=== PATIENT | male | born 1935 | race Caucasian/White ===

== ENCOUNTER 2018-01-14 12:41 | Inpatient (IN) | payer MEDICARE, MEDICAID ==
[2018-01-14 12:44] VITALS: BP 135/68
[2018-01-14] MEDS ORDERED: Magnesium Hydroxide (MOM) 30 mL UDC PO PRN ×2 (13:32→13:39)
[2018-01-14] MEDS ORDERED: Maalox 30 mL Cup PO PRN ×2 (13:32→13:39)
--- NOTE | 2018-01-14 21:26 | History & Physical ---
ADMIT DATE: 01/14/2018 PATIENT IDENTIFICATION: An 82-year-old male. CHIEF COMPLAINT: "I am fine." HISTORY SOURCE: Reviewing the chart, talking to the patient. stapler hand used. HISTORY OF PRESENT ILLNESS: An 82-year-old [place] male initially presented to [facility] [place] for aggressive, agitated, and hypersexual. The patient was seen initially in the Emergency Room and subsequently transferred to [facility] for further care. PAST MEDICAL HISTORY: Remarkable for: 1. Parkinson's disease. 2. Hyperlipidemia. 3. BPH. 4. Dementia. 5. DJD. 6. GERD. MEDICATIONS AT HOME: Taking Depakote, amantadine, vitamin D3, omeprazole, Plavix, pravastatin, Flomax, Sinemet, trazodone, Namenda, and Aricept. ALLERGIES: The patient is not allergic to any medications. SOCIAL HISTORY: The patient resides with his in [place]. The patient has no smoking cigarette, alcohol, or drug use. FAMILY MEDICAL HISTORY: Remarkable for hypertension. REVIEW OF SYSTEMS: Unable to get meaningful history from the patient, but all history, which I asked which are unremarkable for any chest pain, shortness of breath, palpitation, dizziness, nausea, vomiting, diarrhea, dysuria, hematuria, hematochezia, melena. No seizure or syncopal episode. PHYSICAL EXAMINATION: GENERAL: Alert, awake, lying in the bed without any acute distress. VITAL SIGNS: Temperature 98, pulse is 64, respiratory rate 18, and blood pressure 134/80. HEENT: Normocephalic, atraumatic. Extraocular muscles intact. Tongue was pink and coated. Poor dentition noted. No oral lesion, no exudate. No sinus tenderness. External auditory canal and tympanic membranes are well visualized. NECK: Supple, no JVD. No hepatojugular reflex. No lymphadenopathy, thyromegaly, or carotid bruit. HEART: Both heart sounds are regular. Grade 2/6 systolic murmur noted. CHEST AND LUNGS: Equal in expansion, no wheezing, no crackles. ABDOMEN: Soft. No guarding, no rigidity. Liver and spleen palpable. No palpable mass. EXTREMITIES: No edema, no cyanosis. Peripheral pulses +1. No calf tenderness noted. NEUROLOGIC: Awake, alert, and follows commands. No facial asymmetry. Some degree of spasticity noted, but no tremor noted. AVAILABLE DIAGNOSTIC DATA: Performed at [facility] has been reviewed. CLINICAL IMPRESSION: 1. Coronary artery disease. 2. Hyperlipidemia. 3. Benign prostatic hypertrophy. 4. Parkinson's disease. 5. Degenerative joint disease. 6. Psychiatric disorder. 7. Alzheimer's type dementia. 8. Fall risk. PLAN: 1. Psychotic evaluation and management deferred to psychiatrist. 2. Resume Sinemet and amantadine for his Parkinson's disease. Pravastatin for hyperlipidemia, Flomax for BPH. Continue Namenda and Aricept for the dementia. 3. The patient will have fall precautions, nutritional support, general nursing care as well. 4. We will continue to follow this patient during the stay in the hospital. [facility]# [id number]
[2018-01-15] MEDS ORDERED: Multivitamin Tab PO SCH (09:00)
[2018-01-15] MEDS: Multivitamin Tab PO SCH (09:31)
--- NOTE | 2018-01-15 13:54 | History & Physical ---
ADMIT DATE: 01/14/2018 Case was discussed with staff of the patient and discussed the care with his son who happens to be here. IDENTIFYING INFORMATION: The patient is an 82-year-old male. CHIEF COMPLAINT: No answer. HISTORY OF PRESENT ILLNESS: The patient was admitted on a hold for danger to others, danger to self. The patient has been aggressive. According to his son, he has been yelling and screaming, agitated, wanted to kill himself the day prior to his admission, making nonsensical statements, unable to make safe plan for self-care. The patient's son is the main historian. He tells me that he has been hospitalized before at least 3 times. He has been manic, agitated, aggressive, has a long list of medications that he has brought. PAST PSYCHIATRIC HISTORY: Bipolar disorder with 3 prior hospitalizations with a history of being violent towards his and son, unable to make safe plan for self-care. In general, he does not sleep well. Appetite is okay. He can be very violent. The patient is able to tell the month and week but not exactly. He is able to tell the year and his age and date of . The patient has been on Depakote 125 mg twice a day and Aricept 5 mg at bedtime. FAMILY AND SOCIAL HISTORY: The patient has been for 56 years, has 8 children; his son who is with him is the youngest. The patient worked in the [employer], Bahamian speaking. No substance abuse. No family psychotic disorder. MENTAL STATUS EXAMINATION: The patient is appropriately dressed, not well groomed. He was confused, internally preoccupied. He was able to tell his age and his date of . He was unable to tell exactly why he is here. He according to son, minimizing events since admission. His long-term memory is good for age and date of . His memory is poor, cannot remember the events that are ____ minimizing it. Insight and judgment is impaired. He has not been sleeping or eating well. IMPRESSION: AXIS I: Bipolar disorder, depressed, mixed. MEDICAL DIAGNOSES: Deferred to the medical doctor. ASSETS: He wants to get help. NEGATIVES: Poor coping skills. INITIAL TREATMENT PLAN: The patient will be started back on his medication. We will do group therapy, milieu therapy, and individual therapy. ESTIMATED LENGTH OF STAY: 3-7 days. DISCHARGE CRITERIA: Decreasing agitation, threatening behavior. After discharge, outpatient treatment. [facility]# [id number]
[2018-01-15 15:31] LABS: CHOLESTEROL 109 mg/dL (<200); HDL -HIGH DENSITY LIPOPROTEIN 39 mg/dL (23-92); TRIGLYCERIDES 143 mg/dL (<150)
--- NOTE | 2018-01-16 03:50 | Progress Notes ---
DATE: 01/15/2018 IDENTIFICATION: An 82-year-old male. The patient seen and examined. The patient is lying in the bed. The patient speaks Vietnamese only, unable to get meaningful history from the patient. PHYSICAL EXAMINATION: VITAL SIGNS: Temperature 98, pulse is 74, respiratory rate 18, blood pressure 144/70. HEENT: Normocephalic, atraumatic. Pupils react to light. Tongue more pink and coated. NECK: Supple, no JVD, no lymphadenopathy or thyromegaly. HEART: Both heart sounds are regular. CHEST: Lung equal in expansion, no wheezing, no crackles. ABDOMEN: Soft. EXTREMITIES: No edema. NEUROLOGIC: Alert, awake, follows commands. Some degree of spasticity noted. CLINICAL IMPRESSION: 1. Coronary artery disease. 2. Hyperlipidemia. 3. BPH. 4. Parkinson's disease. 5. Degenerative joint disease. 6. Psychotic disorder. 7. Alzheimer dementia. 8. Fall risk. PLAN: 1. Aspirin. 2. P.r.n. nitrates. 3. Statin. 4. Flomax. 5. Sinemet. 6. Psych management deferred to psychiatrist. 7. Symptoms management. 8. Medication management. 9. Fall precautions. 10. Care plan reviewed and discussed with staff. JOB# [id number]
[2018-01-16] MEDS: Multivitamin Tab PO SCH (08:54)
--- NOTE | 2018-01-16 20:19 | Progress Notes ---
DATE: 01/16/2018 SUBJECTIVE: Case was discussed with staff of the patient, reviewed records. The patient continues to be internally preoccupied. Continues to be unpredictable, impulsive, needing redirection, unable to make safe plan for self-care. Continues thoughts of planning to harm himself. Inappropriate behavior. He was having trouble with his . She did not feel safe with him at home. The patient also is demented PLAN OF CARE: We have restarted his medication, watching the patient, tried to adjust medication as needed. We will continue to work with the patient in group therapy, milieu therapy, and adjust medication as needed. JOB# [id number]
--- NOTE | 2018-01-17 00:21 | Progress Notes ---
DATE: 01/16/2018 SUBJECTIVE: The patient is seen and examined on 01/16/2018. The patient is lying in the bed. The patient has Parkinson's and dementia. The patient is ambulatory. The patient denies any chest pain, shortness of breath, palpitation, dizziness, nausea, or vomiting. OBJECTIVE: VITAL SIGNS: Temperature 97, pulse is 68, respiratory rate 18, and blood pressure 144/86. HEENT: No facial asymmetry. NECK: Supple, no JVD. HEART: Regular. LUNGS: Clear. ABDOMEN: Soft. EXTREMITIES: No edema. NEUROLOGIC: Alert, awake, follows commands. CLINICAL IMPRESSION: 1. Parkinson's disease. 2. Psychotic disorder. 3. Alzheimer's type dementia. 4. Coronary artery disease. 5. Hyperlipidemia. 6. Benign prostatic hypertrophy. 7. Degenerative joint disease. PLAN: 1. Psychotic evaluation and management deferred to psychiatrist. 2. Sinemet. 3. Aricept. 4. Fall precautions. 5. Flomax. 6. Pravastatin. 7. Aspirin. 8. General nursing care. 9. Care plan reviewed and discussed with staff. JOB# [id number]
[2018-01-17] MEDS: Multivitamin Tab PO SCH (09:16)
--- NOTE | 2018-01-17 13:13 | Progress Notes ---
DATE: 01/17/2018 Case was discussed with staff of the patient, reviewed records. The patient continues to be internally preoccupied, isolating himself. He was very aggressive prior to coming here with episodes of yelling and screaming, threatening to harm his family. Unable to make safe plan for self-care. The patient continues to have poor insight. He is still unpredictable, impulsive, needing redirection, cannot make safe plan for self-care. His current medications include amantadine or Symmetrel 100 mg daily, Sinemet 1 tablet 4 times a day, Plavix 75 mg daily, Depakote 150 mg twice a day, Aricept 5 mg at bedtime, and Namenda 5 mg twice a day, multivitamin 1 tablet daily, trazodone 50 mg at bedtime, Ambien 5 mg at bedtime as needed for lack of sleep. I will be increasing his Aricept dose to 10 mg. The patient is demented, confused. He is ____ risk because of his dementia, agitation, medication that could make him sedated. We will continue to work with the patient in group therapy, milieu therapy, adjust the medication as needed. JOB# [id number]
[2018-01-18] MEDS: Multivitamin Tab PO SCH (08:28)
--- NOTE | 2018-01-18 14:14 | Internal Medicine Prog Note ---
Internal Medicine Subjective - Subjective Service Date: 01/18/18 Patient seen and examined:: with staff, chart reviewed Patient is:: awake, in bed, talking Patient Complaints of:: other (unable to get meaningful history.) Per staff patient has:: no adverse event Internal Medicine Objective - Results Recent Labs: Laboratory Last Values Triglycerides 143 mg/dL (<150) 01/15/18 15:06 Cholesterol 109 mg/dL (<200) 01/15/18 15:06 LDL Cholesterol Direct 52 mg/dL (75-193) L 01/15/18 15:06 HDL Cholesterol 39 mg/dL (23-92) 01/15/18 15:06 TSH 1.65 uIU/ml (0.34-5.60) 01/15/18 15:06 RPR NONREACTIVE (NONREACTIVE) 01/15/18 15:06 - Physical Exam Vitals and I&O: Vital Signs Temp 98 F 01/18/18 06:30 Pulse 81 01/18/18 06:30 Resp 20 01/18/18 06:30 BP 127/74 01/18/18 06:30 Pulse Ox 98 01/18/18 06:30 Intake & Output 01/17/18 01/18/18 01/18/18 18:59 06:59 18:59 Intake Total 1200 120 Balance 1200 120 Intake: Oral 1200 120 Other: # Voids 4 2 # Bowel Movements 1 Active Medications: Current Medications Acetaminophen (Tylenol) 650 mg PO Q4HR PRN PRN Reason: Mild Pain / Temp above 100 Stop: 03/15/18 13:38 Last Admin: 01/17/18 11:31 Dose: 650 mg Al Hydrox/Mg Hydrox/Simethicone (Maalox) 30 ml PO Q4HR PRN PRN Reason: GI DISTRESS Stop: 03/15/18 13:38 Amantadine HCl (Symmetrel) 100 mg PO DAILY [facility] Stop: 03/16/18 08:59 Last Admin: 01/18/18 08:28 Dose: 100 mg Carbidopa/Levodopa (Sinemet 25mg-100 Mg) 1 tab PO QID ACTHY Stop: 03/15/18 16:59 Last Admin: 01/18/18 14:12 Dose: 1 tab Clopidogrel Bisulfate (Plavix) 75 mg PO DAILY [facility] Stop: 03/16/18 08:59 Last Admin: 01/18/18 08:28 Dose: 75 mg Divalproex Sodium (Depakote Dr) 125 mg PO BID [facility]; Protocol Stop: 03/15/18 16:59 Last Admin: 01/18/18 08:28 Dose: 125 mg Docusate Sodium (Colace) 100 mg PO DAILY [facility] Stop: 03/16/18 08:59 Last Admin: 01/18/18 08:28 Dose: 100 mg Donepezil HCl (Aricept) 10 mg PO HS CATHY Stop: 03/18/18 20:59 Last Admin: 01/17/18 20:24 Dose: 10 mg Lorazepam (Ativan) 0.5 mg PO Q4HR PRN; Protocol PRN Reason: Anxiety Stop: 02/13/18 13:38 Magnesium Hydroxide (Milk Of Magnesia) 30 ml PO HS PRN PRN Reason: Constipation Memantine (Namenda) 5 mg PO BID [facility] Stop: 03/15/18 16:59 Last Admin: 01/18/18 08:28 Dose: 5 mg Multivitamins/Vitamin C (Theragran) 1 tab PO DAILY CATHY Stop: 03/16/18 08:59 Last Admin: 01/18/18 08:28 Dose: 1 tab Trazodone HCl (Desyrel) 50 mg PO HS CATHY; Protocol Stop: 03/15/18 20:59 Last Admin: 01/17/18 20:25 Dose: 50 mg Zolpidem Tartrate (Ambien) 5 mg PO HS PRN PRN Reason: Insomnia Stop: 03/15/18 13:38 Last Admin: 01/17/18 20:25 Dose: 5 mg General: alert HEENT: NC/AT, PERRLA, EOMI, throat clear Neck: Supple, No JVD Lungs: CTAB Cardiovascular: RRR, Normal S1, Normal S2 Abdomen: soft, non-distended, positive bowel sound Extremities: clear Neurological: no change Internal Medicine Assmt/Plan - Assessment Assessment: Parkinson's disease. Alzheimer's Dementia. Coronary artery disease. BPH. DJD. Psych disorder. Fall risk. - Plan Plan: Sinemet and cogentin. Monitor vitals and lab. Anti HTN med. psych meds. Psych follow up. Fall precautions. Symptoms control. Medication management. Continue current care. Discussed with staff.
--- NOTE | 2018-01-18 21:41 | Progress Notes ---
DATE: 01/18/2018 Case was discussed with staff of the patient, reviewed records. The patient continues to be unpredictable and impulsive. The family was visiting him today, his , his daughter, grandchild, they are all non-Pashto speaking, Hebrew speaking. The patient continues to have poor insight. I would be trying to send him to SNF Facility for a while to make sure he stays stable if the family agrees. He is compliant so far with the medication with no side effects, no sedation, no nausea. I would be increasing his Namenda dose and he is already on Aricept 10 mg at bedtime. No side effects from the medication, no sedation, no nausea and we will continue to work with the patient in group therapy, milieu therapy, and adjust medications as needed. JOB# [id number]
[2018-01-19] MEDS: Multivitamin Tab PO SCH (08:33)
--- NOTE | 2018-01-19 22:02 | Progress Notes ---
DATE: 01/19/2018 Case was discussed with staff of the patient, reviewed records. The patient continues to be unpredictable, impulsive, demented, confused, unable to make safe plan for self-care. Working trying to send him to a rehab program before he goes home because of his dangerous behavior. The family is concerned for his safety. He did have multiple hospitalizations for bipolar disorder. He is still unpredictable. He is still unable to make safe plan for self-care. He was supposed to have ____ today performed because he needs a chief wheelage clerk. I will be checking his Depakote level to make sure he is on the appropriate dose before making any adjustment. I did not do it sooner because the patient may have not been taking his medication and it would not be the right level, but now since he has been here for the past 4 days, he probably took it enough to warrant to good level that would match his dose and so far no side effects with the medication, no sedation, no nausea and we will continue to work with the patient in group therapy, milieu therapy, adjust the medication as needed. JOB# [id number]
[2018-01-20] MEDS: Multivitamin Tab PO SCH (08:53)
--- NOTE | 2018-01-21 08:49 | Progress Notes ---
DATE: SUBJECTIVE: The patient was seen and evaluated. The patient's chart reviewed. COVERING FOR: Dr. Bates. IDENTIFYING DATA: He is an 82-year-old male who was initially brought in here on hold for danger to self and others, he became aggressive. According to his son, he had been yelling, screaming, agitated, wanted to kill himself the day prior to admission. Nursing staff reporting that he sounds at times irritable as early as yesterday with primary psychiatrist. Had noted to be demented and in rehab program at a local rehab at the family's concern for his safety. Today on [id number] evaluation, family is at bedside, reported some mild improvement but still concerned for the safety. Today on [id number] evaluation, denies any side effects of medications, withdrawn, irritable, ____. ASSESSMENT AND PLAN: The patient with a history of dementia, was awaiting Depakote level pending today. He had initially been refusing medications and needed some redirection, but not done the past 4 days prior ____ observed to be therapeutic. He is currently on carbidopa/L-Dopa, Coreg, Depakote 125 b.i.d., donepezil at 10 mg a day, memantine at 5 mg p.o. b.i.d. and trazodone 50 at bedtime. He is reporting no side effects of the medications. JOB# [id number]
[2018-01-21] MEDS: Multivitamin Tab PO SCH (09:02)
--- NOTE | 2018-01-22 02:16 | Progress Notes ---
DATE: 01/21/2018 COVERING FOR: Dr. Bates. SUBJECTIVE: The patient was seen and evaluated. The patient's chart reviewed. Depakote levels came back yesterday at 34. Today on [id number] evaluation, the patient reports that he is starting to recognize the reason he was here in the hospital is because "he looked wandering" around his community and confused and not understanding where he was at. He denies any side effects of medication. MENTAL STATUS EXAMINATION: Mild disorganized thought process continues to persist, although he noted improvement. ASSESSMENT AND PLAN: The patient is an 82-year-old male with a history of dementia and labile mood, who continues to need redirections for simple ADLs. We will continue monitoring and evaluating. We will continue with the Depakote levels at this point since they seem to be adjusting and improving, even though on the lower therapeutic side and dosing if the effects seem to be therapeutic. JOB# [id number]
[2018-01-22] MEDS: Multivitamin Tab PO SCH (08:39)
--- NOTE | 2018-01-22 22:40 | Progress Notes ---
DATE: 01/22/2018 Case was discussed with staff of the patient, reviewed records. The patient seems to have been showing some progress. His insight is better as he is starting to realize what he has done. Continues to be however, confused, unable to tell where he is. Disorganized. Unable to make safe plan for self-care. He is compliant with the medication with no side effects, no sedation, no nausea, no extrapyramidal symptoms. He is on Aricept 10 mg at bedtime, Depakote 125 mg twice a day with no side effects, no sedation, no nausea. Depakote level is 34.3, which is below acceptable range, so I will be increasing his Depakote dose to 250 mg twice a day and that might get him to a therapeutic level with his aggressive, irritable, impulsive behavior and so far no side effects with the medication, no sedation, no nausea, no extrapyramidal symptoms and we will continue outpatient group therapy, milieu therapy, adjust medication as needed. [facility]# [id number]
[2018-01-23] MEDS: Multivitamin Tab PO SCH (09:01)
--- NOTE | 2018-01-23 21:52 | Progress Notes ---
DATE: 01/23/2018 Case was discussed with staff of the patient, reviewed records. The patient continues to be confused, unpredictable and impulsive, though he is developing some insight about why he is here with his aggressive behavior. Working on placement for this patient. He is sleeping well, eating well. Depakote level 34.3 and I did increase his dose yesterday and no side effects with the medication, no sedation, no nausea, no extrapyramidal symptoms. We will continue to work with the patient in group therapy, milieu therapy, and adjust medications as needed. JOB# [id number]
[2018-01-24] MEDS: Multivitamin Tab PO SCH (09:38)
--- NOTE | 2018-01-24 10:29 | Progress Notes ---
DATE: 01/24/2018 Case was discussed with staff of the patient, reviewed records. The patient has a problem because of hearing. It was upheld on the ground of grave disability. The patient continues to be unpredictable, impulsive, needing redirection. He is sleeping better, eating better. I did increase his Depakote dose yesterday because his level of Depakote level came low at 34.3. Continues to be confused, unable to make safe plan for self-care. I will be increasing his Namenda to 10 mg twice a day. No side effects with the medication. No sedation, no nausea. Also, working on placement. We will continue to work with the patient in group therapy, milieu therapy, adjust the medication as needed. JOB# [id number]
--- NOTE | 2018-01-25 00:45 | Progress Notes ---
DATE: 01/24/2018 The patient seen and examined. The patient is lying in the bed, unable to get meaningful history from the patient. Discussed with nursing staff about the patient's care plan. OBJECTIVE: VITAL SIGNS: Temperature 98, pulse is 84, respiratory rate 18, blood pressure 130/74. HEENT: No facial asymmetry. NECK: Supple, no JVD. HEART: Regular, no murmur. CHEST: Equal in expansion, no wheezing, no crackles. ABDOMEN: Soft. No guarding or rigidity. Bowel sounds present. No palpable mass. EXTREMITIES: No edema. MAR as reviewed. CLINICAL IMPRESSION: 1. Alzheimer dementia. 2. Coronary artery disease. 3. Benign prostatic hypertrophy. 4. Degenerative joint disease. 5. Psych disorder. 6. Parkinson's disease. 7. Fall risk. PLAN: Continue amantadine and Sinemet for the Parkinson's. Continue Plavix for coronary artery disease, Depakote for mood stabilizer, Aricept for the dementia. Continue to follow psychiatrist recommendation for psych illness. Continue Flomax for benign prostatic hypertrophy. General nursing care and symptoms management as well. Care plan reviewed and discussed with staff. JOB# [id number]
--- NOTE | 2018-01-25 22:27 | Progress Notes ---
DATE: 01/24/2018 SERVICE: The patient apparently was discharged yesterday on 01/24/2018. I saw that there was a discharge order. I never was consulted about discharge. The patient was supposed to be on hold on this, just decided to let him go and I do not have his records to check that and this discharge happened without my permission and it is just to make sure we have the records for this patient. JOB# [id number]
--- NOTE | 2018-01-26 16:02 | Progress Notes ---
DATE: 01/24/2018 SUBJECTIVE: This is note to that I have not put an order for this patient to be discharged. The patient was discharged without me knowing about it. Apparently, the staff decided he is ready to go. I was never consulted about it, did not give the order, so this is just for information because I am concerned that patient got discharged without my permission. JOB# [id number]
== END 2018-01-24 15:35 | DRG 885 ==
LOC: GERO 12:41
PROVIDERS: ADMIT Psychiatry & Neurology Psychiatry; ATTEND Psychiatry & Neurology Psychiatry
DX: F31.5 Bipolar disorder, current episode depressed, severe, with psychotic features (principal); F02.81 Dementia in other diseases classified elsewhere, unspecified severity, with behavioral disturbance; G20 Parkinson's disease; E78.5 Hyperlipidemia, unspecified; N40.0 Benign prostatic hyperplasia without lower urinary tract symptoms; M19.90 Unspecified osteoarthritis, unspecified site; R45.87 Impulsiveness; K21.9 Gastro-esophageal reflux disease without esophagitis; I25.10 Atherosclerotic heart disease of native coronary artery without angina pectoris; G30.9 Alzheimer's disease, unspecified; Z79.899 Other long term (current) drug therapy; Z82.49 Family history of ischemic heart disease and other diseases of the circulatory system; Z91.81 History of falling
CPT/HCPCS: 36415-UA; 80061-TC; 80164-TC; 84443-TC; 86592-TC; 90899; G0410; Z7610